=== PATIENT | female | born 1980 | race Hispanic/Latino ===

== ENCOUNTER 2017-08-20 18:08 | Emergency (ER) | payer BC, OTHER ==
[~2017-08-20] VITALS: Ht 154.9 cm; Wt 67.6 kg
[2017-08-20] MEDS ORDERED: MACROBID 100 M100 MG (18:54)
[2017-08-20] MEDS ORDERED: ZOFRAN ODT4 MG (18:55)
== END 2017-08-20 19:00 | disposition left against medical advice (07) ==
LOC: FSED 18:08
DX: R10.84 Generalized abdominal pain (principal); R11.2 Nausea with vomiting, unspecified